=== PATIENT | male | born 1965 | race African-American/Black ===

== ENCOUNTER 2017-11-25 14:44 | Inpatient (IN) | payer OTHER ==
[2017-11-25 18:08] VITALS: BMI 34.5
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
[2017-11-25] MEDS ORDERED: METOPROLOL TARTRATE 50 MG TABLET (FP) PO SCH (20:19)
[2017-11-25] MEDS ORDERED: amLODIPine BESYLATE 10 MG TABLET (FP) PO SCH (20:19)
[2017-11-25] MEDS ORDERED: guaiFENesin/D-METHORPHAN HB 10 ML UNIT-DOSE CUPS PO PRN (20:23)
[2017-11-25] MEDS ORDERED: MAGNESIUM HYDROX 2400MG/30ML ORAL SUSPENSION 30 ML CUP PO PRN (20:23)
[2017-11-25] MEDS ORDERED: MENTHOL/PHENOL 1 EACH UD MM PRN (20:23)
[2017-11-25] MEDS ORDERED: chlordiazePOXIDE HCL 25 MG CAPSULE PO ONE (20:23)
[2017-11-25] MEDS ORDERED: IBUPROFEN 400 MG TABLET (FP) PO PRN (20:23)
[2017-11-25] MEDS ORDERED: P-EPHED 60MG/TRIPROLIDI 2.5MG TABLET PO PRN (20:23)
[2017-11-25] MEDS ORDERED: MAG HYDROX/AL HYDROX/SIMETH 30 ML UNIT-DOSE CUP PO PRN (20:23)
[2017-11-25] MEDS ORDERED: MAGNESIUM CITRATE 300 ML BOTTLE PO PRN (20:23)
[2017-11-25] MEDS ORDERED: NICOTINE POLACRILEX 2 MG GUM BUC PRN (20:23)
[2017-11-25] MEDS ORDERED: LOPERAMIDE HCL 2 MG CAPSULE PO PRN (20:23)
[2017-11-25] MEDS ORDERED: ACETAMINOPHEN 325 MG TABLET (FP) PO PRN (20:23)
[2017-11-26] MEDS: amLODIPine BESYLATE 10 MG TABLET (FP) PO SCH ×2 (03:27→12:03)
[2017-11-26] MEDS: chlordiazePOXIDE HCL 25 MG CAPSULE PO PRN ×2 (03:27→19:01)
[2017-11-26] MEDS: METOPROLOL TARTRATE 50 MG TABLET (FP) PO SCH ×2 (03:27→12:03)
[2017-11-26] MEDS: chlordiazePOXIDE HCL 25 MG CAPSULE PO SCH ×5 (06:00→22:38)
[2017-11-26] MEDS: THIAMINE HCL 100 MG TABLET (FP) PO SCH ×2 (06:36→22:38)
[2017-11-26 10:14] LABS: HEMATOCRIT 35.8 % (35.4-49); HEMOGLOBIN 11.4 GM/dL (11.7-16.9); MCH 27.4 pg (25.7-33.7); MCHC 31.7 g/dl (32.0-35.9); MEAN CELL VOLUME 86.4 fl (80-96); MEAN PLT VOLUME 10.5 fl (7.5-11.1); PLATELET COUNT 189 K/MM3 (134-434); RBC 4.14 M/mm3 (4.00-5.60); RDW 14.3 % (11.9-15.9); WHITE BLOOD COUNT 8.6 K/mm3 (4.0-10.0)
[2017-11-26 10:31] LABS: CHLORIDE 108 mmol/L (98-107); POTASSIUM 3.3 mmol/L (3.5-5.1); SODIUM 145 mmol/L (136-145)
[2017-11-26 10:57] LABS: ALBUMIN 3.2 g/dl (3.4-5.0); ALK PHOS 80 U/L (45-117); ANION GAP 12 MMOL/L (8-16); BILIRUBIN,TOTAL 0.5 mg/dL (0.2-1); BLOOD UREA NITROGEN 14 mg/dL (7-18); CALCIUM 8.4 mg/dL (8.5-10.1); CO2 25 mmol/L (21-32); CREATININE 0.9 mg/dL (0.55-1.3); GLUCOSE,RANDOM 96 mg/dL (74-106); SGOT/AST 42 U/L (15-37); SGPT/ALT 26 U/L (13-61); TOT PROT 6.5 g/dl (6.4-8.2)
[2017-11-26] MEDS ORDERED: PNEUMOCOCCAL 23 VACCINE 0.5 ML VIAL IM ONE (12:00)
[2017-11-26] MEDS: NICOTINE 14 MG/24 HOURS TOPICAL PATCH TD SCH (12:03)
[2017-11-26] MEDS: PRENATAL VITAMINS W/ FOLIC ACID TABLET (FP) PO SCH (12:17)
[2017-11-26] MEDS ORDERED: PNEUMOC 13-VAL CONJ-DIP CRM/PF 0.5 ML DISP.SYRIN IM ONE (12:20)
[2017-11-26] MEDS ORDERED: FLU VACCINE QUAD 60 MCG/0.5 ML (MDV 18-19) IM ONE (12:20)
--- NOTE | 2017-11-26 16:45 | EKG ---
Test Reason : Blood Pressure : / mmHG Vent. Rate : 078 BPM Atrial Rate : 078 BPM P-R Int : 162 ms QRS Dur : 088 ms QT Int : 400 ms P-R-T Axes : 051 014 035 degrees QTc Int : 456 ms SINUS RHYTHM WITH OCCASIONAL PREMATURE VENTRICULAR COMPLEXES POSSIBLE LEFT ATRIAL ENLARGEMENT BORDERLINE ECG NO PREVIOUS ECGS AVAILABLE Confirmed by Reji Tejada ([id number]) on 11/26/2017 4:44:51 PM Referred By: Confirmed By:Reji Tejada
--- NOTE | 2017-11-26 16:55 | PN ---
[facility] CIWA - CIWA Score Nausea/Vomitin-No Nausea/No Vomiting Muscle Tremors: 4-Moderate,w/Arms Extend Anxiety: 1-Mildly Anxious Agitation: 1-Slight > Activity Paroxysmal Sweats: 3 Orientation: 0-Oriented Tacttile Disturbances: 0-None Auditory Disturbances: 0-None Visual Disturbances: 0-None Headache: 0-None Present CIWA-Ar Total Score: 9 S Progress Note (SOAP) Subjective: C/o feeling some agitation and anxiety. Feels shaky. Denies nausea or vomiting. Objective: A&O x3. Moderate hand tremors. Abd S/NT/BS+. Vital Signs 11/26/17 11/26/17 09:25 13:58 Temperature 98.1 F 97.9 F Pulse Rate 72 67 Respiratory 16 16 Rate Blood Pressure 135/82 116/67 Laboratory 11/26/17 11/26/17 11/26/17 07:50 07:50 08:00 WBC 8.6 K/mm3 K/mm3 (4.0-10.0) RBC 4.14 M/mm3 M/mm3 (4.00-5.60) Hgb 11.4 GM/dL L GM/dL (11.7-16.9) Hct 35.8 % % (35.4-49) MCV 86.4 fl fl (80-96) MCH 27.4 pg pg (25.7-33.7) MCHC 31.7 g/dl L g/dl (32.0-35.9) RDW 14.3 % % (11.9-15.9) Plt Count 189 K/MM3 K/MM3 (134-434) MPV 10.5 fl fl (7.5-11.1) Sodium 145 mmol/L mmol/L (136-145) Potassium 3.3 mmol/L L mmol/L (3.5-5.1) Chloride 108 mmol/L H mmol/L (98-107) Carbon Dioxide 25 mmol/L mmol/L (21-32) Anion Gap 12 MMOL/L MMOL/L (8-16) BUN 14 mg/dL mg/dL (7-18) Creatinine 0.9 mg/dL mg/dL (0.55-1.3) Creat Clearance w eGFR > 60 (>60) Random Glucose 96 mg/dL mg/dL (74-106) Calcium 8.4 mg/dL L mg/dL (8.5-10.1) Total Bilirubin 0.5 mg/dL mg/dL (0.2-1) AST 42 U/L H U/L (15-37) ALT 26 U/L U/L (13-61) Alkaline Phosphatase 80 U/L U/L (45-117) Total Protein 6.5 g/dl g/dl (6.4-8.2) Albumin 3.2 g/dl L g/dl (3.4-5.0) RPR Titer Nonreactive (NONREACTIVE) Labs reviewed. Assessment: Withdrawal symptoms. Low potassium. Plan: Continue detox. Encourage patient to eat a banana and an orange as a potassium food source Repeat K+ in am.
--- NOTE | 2017-11-26 17:10 | CONSULT ---
[facility] Psychiatric Consult - Data Date of interview: 11/26/17 Admission source: [facility] Identifying data: Readmission to [facility] for this 51 y/o AA male self- referred for detoxification treatment (alcohol,cannabis,K2,crack/cocaine) .Admitted to [address] [place] [address].Patient is single without dependents,domiciled,unemployed and supported on SSI benefits. Substance Abuse History: Discussed with the patient in this interview.Details in current [facility] report : Smoking history: Current every day smoker. Have you smoked in the past 12 months: Yes. Aproximately how many cigarettes per day: 10. Hx Chewing Tobacco Use: No. Initiated information on smoking cessation: Yes. 'Breaking Loose' booklet given: 11/25/17. - Substance & Tx. History. Hx Alcohol Use: Yes. Hx Substance Use: Yes (K@). Substance Use Type: Alcohol, Cocaine, Marijuana. Hx Substance Use Treatment: Yes ([facility] Walker one month ago) . - Substances Abused. Alcohol. Route: Oral. Frequency: Daily. Amount used: 2 PINTS. Age of first use: 17. Date of Last Use: 11/25/17. Crack. Route: Smoking. Frequency: Daily. Amount used: $300. Age of first use: 17. Date of Last Use: 11/25/17 Medical History: Hypertension,blindness in right eye,history of eye surgery for cataracts (left eye) and antecedent of left inguinal herniorraphy. Psychiatric History: Patient denies history of psychiatric hospitalizations.Declares that he has been diagnosed with Bipolar Disorder.Mr Vazquez states that he " used to be " prescribed prolixin and depakote (doses not recalled).Patient indicates that he has not taken these medications " for a while". More than six months.No contact with psychiatric [employer]PD care providers.Patient denies history of suicide attempts. Physical/Sexual Abuse/Trauma History: Patient denies. Additional Comment: Urine Drug Screen Results: THC-Marijuana, RUTHY-Cocaine, BZO- Benzodiazepines.Noted. Mental Status Exam - Mental Status Exam Alert and Oriented to: Place, Person Cognitive Function: Grossly Intact Patient Appearance: Unkempt, Disheveled (obese male) Mood: Withdrawn Affect: Mood Congruent Patient Behavior: Sedated (mildly sedated), Fatigued, Cooperative Speech Pattern: Delayed, Slurred Voice Loudness: Moderately Soft/Quiet Thought Process: Goal Oriented (able to answer simple questions ) Thought Disorder: Not Present Hallucinations: Denies Suicidal Ideation: Denies Homicidal Ideation: Denies Insight/Judgement: Poor Sleep: Well Appetite: Good Gait/Station: Other (not observed ; in bed for duration of examination) Psychiatric Findings - Problem List ([place] 1, 2,3) (1) Alcohol dependence with withdrawal Current Visit: Yes Status: Acute Qualifiers: Complication of substance-induced condition: uncomplicated Qualified Code(s ): F10.230 - Alcohol dependence with withdrawal, uncomplicated (2) Cocaine dependence Current Visit: Yes Status: Acute Qualifiers: Substance use status: uncomplicated Qualified Code(s): F14.20 - Cocaine dependence, uncomplicated (3) Marijuana dependence Current Visit: Yes Status: Acute (4) Substance induced mood disorder Current Visit: Yes Status: Acute (5) Non-compliance Current Visit: Yes Status: Chronic Comment: Non adherent to psychiatric aftercare. - Initial Treatment Plan Initial Treatment Plan: Psychoeducation.Sleep hygiene.Detoxification in progress.Medications reconciled : no evidence of prolixin or depakote.Review of pharmacy claims : not informative.Observe clinical progress.
[2017-11-26 20:07] LABS: URINE APPEARANCE CLEAR; URINE BILIRUBIN NEGATIVE (<2.0 mg/dL); URINE COLOR YELLOW; URINE GLUCOSE (UA) 1+ (NEGATIVE); URINE KETONE NEGATIVE (NEGATIVE); URINE LEUK ESTERASE NEGATIVE (NEGATIVE); URINE NITRITE NEGATIVE (NEGATIVE); URINE PROTEIN NEGATIVE (NEGATIVE); URINE UROBILINOGEN NEGATIVE mg/dL (0.2-1.0)
[2017-11-27] MEDS: chlordiazePOXIDE HCL 25 MG CAPSULE PO PRN (00:56)
[2017-11-27] MEDS: chlordiazePOXIDE HCL 25 MG CAPSULE PO SCH ×3 (06:03→18:09)
[2017-11-27] MEDS: PRENATAL VITAMINS W/ FOLIC ACID TABLET (FP) PO SCH (10:49)
[2017-11-27] MEDS: amLODIPine BESYLATE 10 MG TABLET (FP) PO SCH (10:49)
[2017-11-27] MEDS: METOPROLOL TARTRATE 50 MG TABLET (FP) PO SCH (10:49)
[2017-11-27] MEDS: NICOTINE 14 MG/24 HOURS TOPICAL PATCH TD SCH (10:50)
[2017-11-27] MEDS ORDERED: POTASSIUM CHLORIDE ORAL LIQUID 20 MEQ/15 ML PO ONE (11:25)
--- NOTE | 2017-11-27 11:26 | PN ---
[facility] CIWA - CIWA Score Nausea/Vomitin-No Nausea/No Vomiting Muscle Tremors: 4-Moderate,w/Arms Extend Anxiety: 4-Mod. Anxious/Guarded Agitation: 4-Moderately Restless Paroxysmal Sweats: 1-Minimal Palms Moist Orientation: 0-Oriented Tacttile Disturbances: 0-None Auditory Disturbances: 0-None Visual Disturbances: 0-None Headache: 0-None Present CIWA-Ar Total Score: 13 S Progress Note (SOAP) Subjective: PT C/O ANXIETY, SWEATS, SLIGHT TREMORS. Objective: 11/27/17 11:24 Vital Signs 11/27/17 11/27/17 11/27/17 03:30 07:01 09:27 Temperature 97.5 F L 96.1 F L Pulse Rate 72 73 Respiratory 20 18 18 Rate Blood Pressure 126/82 132/74 Laboratory Tests 11/26/17 11/26/17 11/26/17 07:50 07:50 08:00 WBC 8.6 RBC 4.14 Hgb 11.4 L Hct 35.8 MCV 86.4 MCH 27.4 MCHC 31.7 L RDW 14.3 Plt Count 189 MPV 10.5 Sodium 145 Potassium 3.3 L Chloride 108 H Carbon Dioxide 25 Anion Gap 12 BUN 14 Creatinine 0.9 Creat Clearance w eGFR > 60 Random Glucose 96 Calcium 8.4 L Total Bilirubin 0.5 AST 42 H ALT 26 Alkaline Phosphatase 80 Total Protein 6.5 Albumin 3.2 L Urine Color Urine Appearance Urine pH Ur Specific [place] Urine Protein Urine Glucose (UA) Urine Ketones Urine Blood Urine Nitrite Urine Bilirubin Urine Urobilinogen Ur Leukocyte Esterase RPR Titer Nonreactive 11/26/17 11/27/17 17:30 07:30 WBC RBC Hgb Hct MCV MCH MCHC RDW Plt Count MPV Sodium Potassium 3.4 L Chloride Carbon Dioxide Anion Gap BUN Creatinine Creat Clearance w eGFR Random Glucose Calcium Total Bilirubin AST ALT Alkaline Phosphatase Total Protein Albumin Urine Color Yellow Urine Appearance Clear Urine pH 6.0 Ur Specific [place] 1.018 Urine Protein Negative Urine Glucose (UA) 1+ H Urine Ketones Negative Urine Blood Negative Urine Nitrite Negative Urine Bilirubin Negative Urine Urobilinogen Negative Ur Leukocyte Esterase Negative RPR Titer LABS NOTED. K+ = 3.3 Assessment: 11/27/17 11:24 WITHDRAWAL SX HYPOKALEMIA Plan: CONTINUE DETOX KCL LIQ 20 MEQ PO BID, FIRST DOSE NOW.
[2017-11-27] MEDS: THIAMINE HCL 100 MG TABLET (FP) PO SCH (22:35)
[2017-11-27] MEDS: POTASSIUM CHLORIDE ORAL LIQUID 20 MEQ/15 ML PO SCH (22:35)
[2017-11-27] MEDS: chlordiazePOXIDE 5 MG CAPSULE PO SCH (22:35)
[2017-11-27] MEDS: MELATONIN 5 MG TABLETS PO PRN (22:36)
[2017-11-28] MEDS: chlordiazePOXIDE 5 MG CAPSULE PO SCH ×3 (06:01→18:04)
[2017-11-28] MEDS: amLODIPine BESYLATE 10 MG TABLET (FP) PO SCH (10:37)
[2017-11-28] MEDS: PRENATAL VITAMINS W/ FOLIC ACID TABLET (FP) PO SCH (10:37)
[2017-11-28] MEDS: POTASSIUM CHLORIDE ORAL LIQUID 20 MEQ/15 ML PO SCH ×2 (10:37→22:39)
[2017-11-28] MEDS: METOPROLOL TARTRATE 50 MG TABLET (FP) PO SCH (10:38)
[2017-11-28] MEDS: NICOTINE 14 MG/24 HOURS TOPICAL PATCH TD SCH (10:40)
--- NOTE | 2017-11-28 11:31 | PN ---
S Progress Note (SOAP) Subjective: DETOX PROCEEDING WELL. PT REPORTS MEDICATION TAPER EFFECTIVE. ALERT O X 3. NAD. PT REFERRED TO [facility] TOMORROW PER COUNSELOR, ZEE STYLES. Objective: 11/28/17 11:30 Vital Signs 11/28/17 11/28/17 11/28/17 06:17 06:30 10:05 Temperature 97.2 F L 98.4 F Pulse Rate 61 76 Respiratory 18 18 20 Rate Blood Pressure 118/74 135/91 Laboratory Tests 11/26/17 11/26/17 11/26/17 07:50 07:50 08:00 WBC 8.6 RBC 4.14 Hgb 11.4 L Hct 35.8 MCV 86.4 MCH 27.4 MCHC 31.7 L RDW 14.3 Plt Count 189 MPV 10.5 Sodium 145 Potassium 3.3 L Chloride 108 H Carbon Dioxide 25 Anion Gap 12 BUN 14 Creatinine 0.9 Creat Clearance w eGFR > 60 Random Glucose 96 Calcium 8.4 L Total Bilirubin 0.5 AST 42 H ALT 26 Alkaline Phosphatase 80 Total Protein 6.5 Albumin 3.2 L Urine Color Urine Appearance Urine pH Ur Specific [place] Urine Protein Urine Glucose (UA) Urine Ketones Urine Blood Urine Nitrite Urine Bilirubin Urine Urobilinogen Ur Leukocyte Esterase RPR Titer Nonreactive 11/26/17 11/27/17 17:30 07:30 WBC RBC Hgb Hct MCV MCH MCHC RDW Plt Count MPV Sodium Potassium 3.4 L Chloride Carbon Dioxide Anion Gap BUN Creatinine Creat Clearance w eGFR Random Glucose Calcium Total Bilirubin AST ALT Alkaline Phosphatase Total Protein Albumin Urine Color Yellow Urine Appearance Clear Urine pH 6.0 Ur Specific [place] 1.018 Urine Protein Negative Urine Glucose (UA) 1+ H Urine Ketones Negative Urine Blood Negative Urine Nitrite Negative Urine Bilirubin Negative Urine Urobilinogen Negative Ur Leukocyte Esterase Negative RPR Titer Assessment: 11/28/17 11:30 NAD Plan: CONTINUE DETOX RX FOR HTN SENT TO [facility] FOR PRODUCT [facility] TO REHAB. REPEAT K+ LEVEL TODAY.
[2017-11-28] MEDS: chlordiazePOXIDE HCL 10 MG CAPSULE PO SCH (22:39)
[2017-11-28] MEDS: THIAMINE HCL 100 MG TABLET (FP) PO SCH (22:39)
[2017-11-28] MEDS: MELATONIN 5 MG TABLETS PO PRN (22:39)
[2017-11-29] MEDS: chlordiazePOXIDE HCL 10 MG CAPSULE PO SCH ×2 (06:28→10:45)
[2017-11-29 10:33] VITALS: BP 152/90; PULSE 65; TEMP 97.6
[2017-11-29] MEDS: METOPROLOL TARTRATE 50 MG TABLET (FP) PO SCH (10:42)
[2017-11-29] MEDS: amLODIPine BESYLATE 10 MG TABLET (FP) PO SCH (10:43)
[2017-11-29] MEDS: PRENATAL VITAMINS W/ FOLIC ACID TABLET (FP) PO SCH (10:43)
[2017-11-29] MEDS: POTASSIUM CHLORIDE ORAL LIQUID 20 MEQ/15 ML PO SCH (10:43)
[2017-11-29] MEDS: NICOTINE 14 MG/24 HOURS TOPICAL PATCH TD SCH (10:45)
--- NOTE | 2017-11-29 12:53 | DS ---
[facility] Detox Discharge Summary Admission Date: 11/25/17 Discharge Date: 11/29/17 - History Present History: Alcohol Dependence, Cocaine Dependence Additional Comments: DETOX COMPLETED. ALERT O X 3. NAD. PT TO FOLLOW UP WITH HIS PCP FOR MEDICAL MANAGEMENT OF COMORBID CONDITIONS. Pertinent Past History: PLEASE SEE DX BELOW - Physical Exam Results Vital Signs: Vital Signs Temperature 97.6 F 11/29/17 10:32 Pulse Rate 65 11/29/17 10:32 Respiratory Rate 18 11/29/17 10:32 Blood Pressure 152/90 11/29/17 10:32 O2 Sat by Pulse Oximetry (%) Pertinent Admission Physical Exam Findings: WITHDRAWAL SX Laboratory Tests 11/26/17 11/26/17 11/26/17 07:50 07:50 08:00 WBC 8.6 RBC 4.14 Hgb 11.4 L Hct 35.8 MCV 86.4 MCH 27.4 MCHC 31.7 L RDW 14.3 Plt Count 189 MPV 10.5 Sodium 145 Potassium 3.3 L Chloride 108 H Carbon Dioxide 25 Anion Gap 12 BUN 14 Creatinine 0.9 Creat Clearance w eGFR > 60 Random Glucose 96 Calcium 8.4 L Total Bilirubin 0.5 AST 42 H ALT 26 Alkaline Phosphatase 80 Total Protein 6.5 Albumin 3.2 L Urine Color Urine Appearance Urine pH Ur Specific [place] Urine Protein Urine Glucose (UA) Urine Ketones Urine Blood Urine Nitrite Urine Bilirubin Urine Urobilinogen Ur Leukocyte Esterase RPR Titer Nonreactive 11/26/17 11/27/17 11/28/17 17:30 07:30 12:30 WBC RBC Hgb Hct MCV MCH MCHC RDW Plt Count MPV Sodium Potassium 3.4 L 3.6 Chloride Carbon Dioxide Anion Gap BUN Creatinine Creat Clearance w eGFR Random Glucose Calcium Total Bilirubin AST ALT Alkaline Phosphatase Total Protein Albumin Urine Color Yellow Urine Appearance Clear Urine pH 6.0 Ur Specific [place] 1.018 Urine Protein Negative Urine Glucose (UA) 1+ H Urine Ketones Negative Urine Blood Negative Urine Nitrite Negative Urine Bilirubin Negative Urine Urobilinogen Negative Ur Leukocyte Esterase Negative RPR Titer - Treatment Hospital Course: Detox Protocol Followed, Detoxed Safely, Responded well, Discharged Condition Good, Rehab Referral Accepted Patient has Accepted a Rehab Referral to: [facility] - Medication Discharge Medications: Ambulatory Orders Diphenhydramine [Benadryl -] 100 mg PO DAILY 11/25/17 Amlodipine Besylate [Norvasc -] 10 mg PO DAILY #30 tablet 11/28/17 Metoprolol Tartrate [Lopressor] 50 mg PO DAILY #30 tablet 11/28/17 - Diagnosis (1) Alcohol dependence with withdrawal Current Visit: Yes Status: Acute Qualifiers: Complication of substance-induced condition: uncomplicated Qualified Code(s ): F10.230 - Alcohol dependence with withdrawal, uncomplicated (2) Cocaine dependence Current Visit: Yes Status: Acute Qualifiers: Substance use status: uncomplicated Qualified Code(s): F14.20 - Cocaine dependence, uncomplicated (3) Marijuana dependence Current Visit: Yes Status: Acute (4) Hypertension Current Visit: Yes Status: Chronic Qualifiers: Hypertension type: essential hypertension Qualified Code(s): I10 - Essential (primary) hypertension (5) Obese Current Visit: Yes Status: Chronic Qualifiers: Obesity type: unspecified obesity type Obesity classification: adult class 1 (BMI 30 - 34.9) (6) Visual impairment of right eye Current Visit: Yes Status: Chronic (7) Hypokalemia Current Visit: Yes Status: Acute - AMA Did Patient Leave Against Medical Advice: No
--- NOTE | 2017-11-29 13:02 | PN ---
S Progress Note (SOAP) Subjective: DETOX COMPLETED, ALERT O X 3 NAD. PT WAS UNABLE TO FILL HIS RX THAT WAS SENT TO [facility] BECAUSE HE HAD JUST PICKED UP A NEW REFILL BEFOR COMING TO DETOX. PT SPOKE TO HIS COUNSELOR AND WILL BE FOLLOWING UP WITH [facility] AT [facility] WITH HIS MEDICATIONS AFTER DISCHARGE FROM HERE TODAY. Objective: 11/29/17 13:03 Vital Signs 11/29/17 11/29/17 06:24 10:32 Temperature 97 F L 97.6 F Pulse Rate 64 65 Respiratory 18 18 Rate Blood Pressure 123/74 152/90 Laboratory Tests 11/26/17 11/26/17 11/26/17 07:50 07:50 08:00 WBC 8.6 RBC 4.14 Hgb 11.4 L Hct 35.8 MCV 86.4 MCH 27.4 MCHC 31.7 L RDW 14.3 Plt Count 189 MPV 10.5 Sodium 145 Potassium 3.3 L Chloride 108 H Carbon Dioxide 25 Anion Gap 12 BUN 14 Creatinine 0.9 Creat Clearance w eGFR > 60 Random Glucose 96 Calcium 8.4 L Total Bilirubin 0.5 AST 42 H ALT 26 Alkaline Phosphatase 80 Total Protein 6.5 Albumin 3.2 L Urine Color Urine Appearance Urine pH Ur Specific [place] Urine Protein Urine Glucose (UA) Urine Ketones Urine Blood Urine Nitrite Urine Bilirubin Urine Urobilinogen Ur Leukocyte Esterase RPR Titer Nonreactive 11/26/17 11/27/17 11/28/17 17:30 07:30 12:30 WBC RBC Hgb Hct MCV MCH MCHC RDW Plt Count MPV Sodium Potassium 3.4 L 3.6 Chloride Carbon Dioxide Anion Gap BUN Creatinine Creat Clearance w eGFR Random Glucose Calcium Total Bilirubin AST ALT Alkaline Phosphatase Total Protein Albumin Urine Color Yellow Urine Appearance Clear Urine pH 6.0 Ur Specific [place] 1.018 Urine Protein Negative Urine Glucose (UA) 1+ H Urine Ketones Negative Urine Blood Negative Urine Nitrite Negative Urine Bilirubin Negative Urine Urobilinogen Negative Ur Leukocyte Esterase Negative RPR Titer Assessment: 11/29/17 13:03 MEDICALLY STABLE Plan: D/C PT TODAY
== END 2017-11-29 12:06 | disposition home or self-care (01) | DRG 775 ==
LOC: YASAS 14:44 → Y3N 20:47
PROC: HZ2ZZZZ Detoxification Services for Substance Abuse Treatment (ICD-10-PCS; principal; 2017-11-25)
DX: F10.230 Alcohol dependence with withdrawal, uncomplicated (principal); F12.20 Cannabis dependence, uncomplicated; F19.24 Other psychoactive substance dependence with psychoactive substance-induced mood disorder; E87.6 Hypokalemia; I10 Essential (primary) hypertension; H54.7 Unspecified visual loss; E66.9 Obesity, unspecified; Z68.34 Body mass index [BMI] 34.0-34.9, adult; Z91.19 Patient's noncompliance with other medical treatment and regimen
CPT/HCPCS: 36415; 80053; 81003; 84132; 85027; 86593; 90688; 90732; 93005; 93010; G0008; G0009

== ENCOUNTER 2018-05-18 15:58 | Inpatient (IN) | payer OTHER ==
[2018-05-18 17:52] VITALS: BMI 34.0
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
[2018-05-18] MEDS ORDERED: METHOCARBAMOL 500 MG TABLET PO PRN (20:44)
[2018-05-18] MEDS ORDERED: NICOTINE POLACRILEX 2 MG GUM BUC PRN (20:44)
[2018-05-18] MEDS ORDERED: MENTHOL/PHENOL 1 EACH UD MM PRN (20:44)
[2018-05-18] MEDS ORDERED: IBUPROFEN 400 MG TABLET (FP) PO PRN (20:44)
[2018-05-18] MEDS ORDERED: hydrOXYzine PAMOATE 25 MG CAPSULE (FP) PO PRN (20:44)
[2018-05-18] MEDS ORDERED: ONDANSETRON *ODT* 4 MG TABLET SL PRN (20:44)
[2018-05-18] MEDS ORDERED: BISMUTH SUBSALICYLATE 524 MG/30 ML UD PO PRN (20:44)
[2018-05-18] MEDS ORDERED: MAGNESIUM CITRATE 300 ML BOTTLE PO PRN (20:44)
[2018-05-18] MEDS ORDERED: ACETAMINOPHEN 325 MG TABLET (FP) PO PRN ×2 (20:44)
[2018-05-18] MEDS ORDERED: chlordiazePOXIDE HCL 25 MG CAPSULE PO PRN (20:44)
[2018-05-18] MEDS ORDERED: MAG HYDROX/AL HYDROX/SIMETH 30 ML UNIT-DOSE CUP PO PRN (20:44)
[2018-05-18] MEDS ORDERED: MAGNESIUM HYDROX 2400MG/30ML ORAL SUSPENSION 30 ML CUP PO PRN (20:44)
[2018-05-18] MEDS ORDERED: MELATONIN 5 MG TABLETS PO PRN (20:44)
[2018-05-18] MEDS: chlordiazePOXIDE HCL 25 MG CAPSULE PO SCH (22:21)
[2018-05-18] MEDS: THIAMINE HCL 100 MG TABLET (FP) PO SCH (22:21)
[2018-05-18] MEDS ORDERED: cloNIDine HCL 0.1 MG TABLET PO ONE (22:56)
--- NOTE | 2018-05-18 22:59 | PN ---
S Progress Note Note: Patent's blood pressure is B/P 163/104. Patient is asymptomatic. Vital Signs Temperature 98.8 F 05/18/18 17:51 Pulse Rate 72 05/18/18 22:56 Respiratory Rate 16 05/18/18 22:56 Blood Pressure 163/103 H 05/18/18 22:56 O2 Sat by Pulse Oximetry (%) Action: Clonidine 0.1mg 1 tablet oral ordered
[2018-05-19] MEDS: chlordiazePOXIDE HCL 25 MG CAPSULE PO SCH ×4 (07:03→22:41)
[2018-05-19 10:10] LABS: HEMATOCRIT 36.6 % (35.4-49); HEMOGLOBIN 12.3 GM/dL (11.7-16.9); MCH 28.5 pg (25.7-33.7); MCHC 33.7 g/dl (32.0-35.9); MEAN CELL VOLUME 84.7 fl (80-96); MEAN PLT VOLUME 9.9 fl (7.5-11.1); PLATELET COUNT 234 K/MM3 (134-434); RBC 4.33 M/mm3 (4.00-5.60); RDW 15.4 % (11.9-15.9); WHITE BLOOD COUNT 6.7 K/mm3 (4.0-10.0)
[2018-05-19 10:32] LABS: ALBUMIN 3.1 g/dl (3.4-5.0); ALK PHOS 91 U/L (45-117); ANION GAP 7 MMOL/L (8-16); BILIRUBIN,TOTAL 0.6 mg/dL (0.2-1); BLOOD UREA NITROGEN 15 mg/dL (7-18); CALCIUM 8.6 mg/dL (8.5-10.1); CHLORIDE 104 mmol/L (98-107); CO2 30 mmol/L (21-32); CREATININE 1.3 mg/dL (0.55-1.3); GLUCOSE,RANDOM 89 mg/dL (74-106); POTASSIUM 3.2 mmol/L (3.5-5.1); SGOT/AST 24 U/L (15-37); SGPT/ALT 20 U/L (13-61); SODIUM 141 mmol/L (136-145); TOT PROT 6.3 g/dl (6.4-8.2)
--- NOTE | 2018-05-19 11:01 | PN ---
S CIWA - CIWA Score Nausea/Vomitin-No Nausea/No Vomiting Muscle Tremors: 2 Anxiety: 1-Mildly Anxious Agitation: 2 Paroxysmal Sweats: 1-Minimal Palms Moist Orientation: 1-Uncertain about Date Tacttile Disturbances: 0-None Auditory Disturbances: 0-None Visual Disturbances: 0-None Headache: 2-Mild CIWA-Ar Total Score: 9 [facility] Progress Note (SOAP) Subjective: tremor sweating headaches anxiousness Objective: 05/19/18 11:15 Vital Signs Temperature 98.1 F 05/19/18 09:54 Pulse Rate 66 05/19/18 09:54 Respiratory Rate 18 05/19/18 09:54 Blood Pressure 129/78 05/19/18 09:54 O2 Sat by Pulse Oximetry (%) Laboratory Last Values WBC 6.7 K/mm3 (4.0-10.0) 05/19/18 08:00 RBC 4.33 M/mm3 (4.00-5.60) 05/19/18 08:00 Hgb 12.3 GM/dL (11.7-16.9) 05/19/18 08:00 Hct 36.6 % (35.4-49) 05/19/18 08:00 MCV 84.7 fl (80-96) 05/19/18 08:00 MCH 28.5 pg (25.7-33.7) 05/19/18 08:00 MCHC 33.7 g/dl (32.0-35.9) 05/19/18 08:00 RDW 15.4 % (11.9-15.9) 05/19/18 08:00 Plt Count 234 K/MM3 (134-434) D 05/19/18 08:00 MPV 9.9 fl (7.5-11.1) 05/19/18 08:00 Sodium 141 mmol/L (136-145) 05/19/18 08:00 Potassium 3.2 mmol/L (3.5-5.1) L 05/19/18 08:00 Chloride 104 mmol/L (98-107) 05/19/18 08:00 Carbon Dioxide 30 mmol/L (21-32) 05/19/18 08:00 Anion Gap 7 MMOL/L (8-16) L 05/19/18 08:00 BUN 15 mg/dL (7-18) 05/19/18 08:00 Creatinine 1.3 mg/dL (0.55-1.3) 05/19/18 08:00 Creat Clearance w eGFR 58.43 (>60) 05/19/18 08:00 Random Glucose 89 mg/dL (74-106) 05/19/18 08:00 Calcium 8.6 mg/dL (8.5-10.1) 05/19/18 08:00 Total Bilirubin 0.6 mg/dL (0.2-1) 05/19/18 08:00 AST 24 U/L (15-37) 05/19/18 08:00 ALT 20 U/L (13-61) 05/19/18 08:00 Alkaline Phosphatase 91 U/L (45-117) 05/19/18 08:00 Total Protein 6.3 g/dl (6.4-8.2) L 05/19/18 08:00 Albumin 3.1 g/dl (3.4-5.0) L 05/19/18 08:00 lab noted low K+ 05/19/18 11:19 Assessment: 05/19/18 11:19 withdrawal sx hypokalemia Plan: continue detox K+ supplement
--- NOTE | 2018-05-19 11:23 | EKG ---
Test Reason : Blood Pressure : / mmHG Vent. Rate : 072 BPM Atrial Rate : 072 BPM P-R Int : 182 ms QRS Dur : 090 ms QT Int : 388 ms P-R-T Axes : 051 013 035 degrees QTc Int : 424 ms NORMAL SINUS RHYTHM NONSPECIFIC T WAVE ABNORMALITY ABNORMAL ECG WHEN COMPARED WITH ECG OF 26-NOV-2017 02:27, PREMATURE VENTRICULAR COMPLEXES ARE NO LONGER PRESENT T WAVE VARIATION Confirmed by CHRISTINE BENAVIDEZ, TRISHA ([id number]) on 05/19/2018 11:23:20 AM Referred By: Confirmed By:TRISHA KING MD
[2018-05-19] MEDS: PRENATAL VITAMINS W/ FOLIC ACID TABLET (FP) PO SCH (11:59)
[2018-05-19] MEDS: METOPROLOL TARTRATE 50 MG TABLET (FP) PO SCH (11:59)
[2018-05-19] MEDS: LISINOPRIL 10 MG TABLET (FP) PO SCH (11:59)
[2018-05-19] MEDS: NICOTINE 14 MG/24 HOURS TOPICAL PATCH TD SCH (11:59)
[2018-05-19] MEDS: NIFEdipine E.R. 30 MG TABLET (FP) PO SCH (11:59)
[2018-05-19] MEDS: POTASSIUM CHLORIDE ORAL LIQUID 20 MEQ/15 ML PO SCH ×2 (14:01→17:35)
[2018-05-19] MEDS: THIAMINE HCL 100 MG TABLET (FP) PO SCH (22:41)
--- NOTE | 2018-05-19 23:47 | EKG ---
Test Reason : Blood Pressure : / mmHG Vent. Rate : 063 BPM Atrial Rate : 063 BPM P-R Int : 168 ms QRS Dur : 086 ms QT Int : 420 ms P-R-T Axes : 054 016 017 degrees QTc Int : 429 ms NORMAL SINUS RHYTHM WITH SINUS ARRHYTHMIA SEPTAL INFARCT , AGE UNDETERMINED ABNORMAL ECG WHEN COMPARED WITH ECG OF 18-MAY-2018 22:02, SEPTAL INFARCT IS NOW PRESENT Confirmed by CHRISTINE BENAVIDEZ, TRISHA ([id number]) on 05/19/2018 11:47:26 PM Referred By: Confirmed By:TRISHA KING MD
[2018-05-20] MEDS: chlordiazePOXIDE HCL 25 MG CAPSULE PO SCH ×3 (06:09→17:41)
[2018-05-20] MEDS: NIFEdipine E.R. 30 MG TABLET (FP) PO SCH (10:48)
[2018-05-20] MEDS: METOPROLOL TARTRATE 50 MG TABLET (FP) PO SCH (10:48)
[2018-05-20] MEDS: NICOTINE 14 MG/24 HOURS TOPICAL PATCH TD SCH (10:50)
[2018-05-20] MEDS: LISINOPRIL 10 MG TABLET (FP) PO SCH (10:50)
[2018-05-20] MEDS: PRENATAL VITAMINS W/ FOLIC ACID TABLET (FP) PO SCH (10:50)
--- NOTE | 2018-05-20 11:26 | PN ---
[facility] CIWA - CIWA Score Nausea/Vomitin-No Nausea/No Vomiting Muscle Tremors: 1-None Visible, but [place] Anxiety: 1-Mildly Anxious Agitation: 1-Slight > Activity Paroxysmal Sweats: No Perspiration Orientation: 1-Uncertain about Date Tacttile Disturbances: 0-None Auditory Disturbances: 0-None Visual Disturbances: 0-None Headache: 1-Very Mild CIWA-Ar Total Score: 5 BHS Progress Note (SOAP) Subjective: tremor sweating headaches long history of hypertension none adherence with medication Objective: 05/20/18 11:26 Vital Signs Temperature 96.3 F L 05/20/18 09:39 Pulse Rate 64 05/20/18 09:39 Respiratory Rate 16 05/20/18 09:39 Blood Pressure 161/81 05/20/18 09:39 O2 Sat by Pulse Oximetry (%) Laboratory Last Values WBC 6.7 K/mm3 (4.0-10.0) 05/19/18 08:00 RBC 4.33 M/mm3 (4.00-5.60) 05/19/18 08:00 Hgb 12.3 GM/dL (11.7-16.9) 05/19/18 08:00 Hct 36.6 % (35.4-49) 05/19/18 08:00 MCV 84.7 fl (80-96) 05/19/18 08:00 MCH 28.5 pg (25.7-33.7) 05/19/18 08:00 MCHC 33.7 g/dl (32.0-35.9) 05/19/18 08:00 RDW 15.4 % (11.9-15.9) 05/19/18 08:00 Plt Count 234 K/MM3 (134-434) D 05/19/18 08:00 MPV 9.9 fl (7.5-11.1) 05/19/18 08:00 Sodium 141 mmol/L (136-145) 05/19/18 08:00 Potassium 3.2 mmol/L (3.5-5.1) L 05/19/18 08:00 Chloride 104 mmol/L (98-107) 05/19/18 08:00 Carbon Dioxide 30 mmol/L (21-32) 05/19/18 08:00 Anion Gap 7 MMOL/L (8-16) L 05/19/18 08:00 BUN 15 mg/dL (7-18) 05/19/18 08:00 Creatinine 1.3 mg/dL (0.55-1.3) 05/19/18 08:00 Creat Clearance w eGFR 58.43 (>60) 05/19/18 08:00 Random Glucose 89 mg/dL (74-106) 05/19/18 08:00 Calcium 8.6 mg/dL (8.5-10.1) 05/19/18 08:00 Total Bilirubin 0.6 mg/dL (0.2-1) 05/19/18 08:00 AST 24 U/L (15-37) 05/19/18 08:00 ALT 20 U/L (13-61) 05/19/18 08:00 Alkaline Phosphatase 91 U/L (45-117) 05/19/18 08:00 Total Protein 6.3 g/dl (6.4-8.2) L 05/19/18 08:00 Albumin 3.1 g/dl (3.4-5.0) L 05/19/18 08:00 RPR Titer Nonreactive (NONREACTIVE) 05/19/18 08:00 lab noted hypertension K+ repeat pending S1S2 regular pulmonary lungs clear abdomen soft tolerate food well extremities no swell , 05/20/18 11:31 Assessment: 05/20/18 11:30 alcohol withdrawal sx hypertension Plan: continue detox add HCTZ
[2018-05-20] MEDS ORDERED: POTASSIUM CHLORIDE ORAL LIQUID 20 MEQ/15 ML PO SCH (12:00)
[2018-05-20] MEDS: HYDROCHLOROTHIAZIDE 12.5 MG CAPSULE (FP) PO SCH ×2 (13:26→17:41)
[2018-05-20] MEDS: chlordiazePOXIDE HCL 10 MG CAPSULE PO SCH (22:50)
[2018-05-20] MEDS: THIAMINE HCL 100 MG TABLET (FP) PO SCH (22:50)
[2018-05-20] MEDS ORDERED: chlordiazePOXIDE HCL 10 MG CAPSULE PO PRN (23:00)
[2018-05-21] MEDS: HYDROCHLOROTHIAZIDE 12.5 MG CAPSULE (FP) PO SCH (06:52)
[2018-05-21] MEDS: chlordiazePOXIDE HCL 10 MG CAPSULE PO SCH ×2 (06:52→11:45)
[2018-05-21 09:06] VITALS: BP 132/76; PULSE 74; TEMP 96
--- NOTE | 2018-05-21 10:43 | DS ---
[facility] Detox Discharge Summary Admission Date: 05/18/18 Discharge Date: 05/21/18 - History Present History: Alcohol Dependence Additional Comments: 52 years old male admitted on 05/18/18 for alcohol withdrawal stabilization feeling better today prefer begin alcohol rehab today aftercare [facility] transportation arranged Pertinent Past History: keep medication list in wallet bring in medication list and bottles of medication to aftercare appointment update medication list when change of medication medication adherence bring in lab result to aftercare appointment - Physical Exam Results Vital Signs: Vital Signs Temperature 96 F L 05/21/18 09:06 Pulse Rate 74 05/21/18 09:06 Respiratory Rate 20 05/21/18 09:06 Blood Pressure 132/76 05/21/18 09:06 O2 Sat by Pulse Oximetry (%) Pertinent Admission Physical Exam Findings: alcohol withdrawal sx Laboratory Last Values WBC 6.7 K/mm3 (4.0-10.0) 05/19/18 08:00 RBC 4.33 M/mm3 (4.00-5.60) 05/19/18 08:00 Hgb 12.3 GM/dL (11.7-16.9) 05/19/18 08:00 Hct 36.6 % (35.4-49) 05/19/18 08:00 MCV 84.7 fl (80-96) 05/19/18 08:00 MCH 28.5 pg (25.7-33.7) 05/19/18 08:00 MCHC 33.7 g/dl (32.0-35.9) 05/19/18 08:00 RDW 15.4 % (11.9-15.9) 05/19/18 08:00 Plt Count 234 K/MM3 (134-434) D 05/19/18 08:00 MPV 9.9 fl (7.5-11.1) 05/19/18 08:00 Sodium 141 mmol/L (136-145) 05/19/18 08:00 Potassium 3.8 mmol/L (3.5-5.1) 05/20/18 07:00 Chloride 104 mmol/L (98-107) 05/19/18 08:00 Carbon Dioxide 30 mmol/L (21-32) 05/19/18 08:00 Anion Gap 7 MMOL/L (8-16) L 05/19/18 08:00 BUN 15 mg/dL (7-18) 05/19/18 08:00 Creatinine 1.3 mg/dL (0.55-1.3) 05/19/18 08:00 Creat Clearance w eGFR 58.43 (>60) 05/19/18 08:00 Random Glucose 89 mg/dL (74-106) 05/19/18 08:00 Calcium 8.6 mg/dL (8.5-10.1) 05/19/18 08:00 Total Bilirubin 0.6 mg/dL (0.2-1) 05/19/18 08:00 AST 24 U/L (15-37) 05/19/18 08:00 ALT 20 U/L (13-61) 05/19/18 08:00 Alkaline Phosphatase 91 U/L (45-117) 05/19/18 08:00 Total Protein 6.3 g/dl (6.4-8.2) L 05/19/18 08:00 Albumin 3.1 g/dl (3.4-5.0) L 05/19/18 08:00 RPR Titer Nonreactive (NONREACTIVE) 05/19/18 08:00 lab noted - Treatment Hospital Course: Detox Protocol Followed, Detoxed Safely, Responded well, Discharged Condition Good, Rehab Referral Accepted Patient has Accepted a Rehab Referral to: [facility] - Medication Discharge Medications: Ambulatory Orders Hydrochlorothiazide 12.5 mg PO BID 05/20/18 Amlodipine Besylate [Norvasc -] 10 mg PO DAILY #30 tablet 05/21/18 Hydrochlorothiazide [Hctz -] 12.5 mg PO BID@0700,1630 #30 cap 05/21/18 Lisinopril 10 mg PO DAILY #30 tablet 05/21/18 Metoprolol Tartrate [Lopressor] 50 mg PO DAILY #30 tablet 05/21/18 Nifedipine [Procardia Xl] 30 mg PO DAILY #30 tab.er.24 05/21/18 - Diagnosis (1) Hypertension Current Visit: Yes Status: Chronic Qualifiers: Hypertension type: essential hypertension Qualified Code(s): I10 - Essential (primary) hypertension (2) Nicotine dependence Current Visit: Yes Status: Acute Qualifiers: Nicotine product type: cigarettes Substance use status: in withdrawal Qualified Code(s): F17.213 - Nicotine dependence, cigarettes, with withdrawal (3) Alcohol dependence with withdrawal Current Visit: Yes Status: Acute Qualifiers: Complication of substance-induced condition: uncomplicated Qualified Code(s ): F10.230 - Alcohol dependence with withdrawal, uncomplicated (4) Substance induced mood disorder Current Visit: Yes Status: Suspected - AMA Did Patient Leave Against Medical Advice: No
[2018-05-21] MEDS: NICOTINE 14 MG/24 HOURS TOPICAL PATCH TD SCH (10:44)
[2018-05-21] MEDS: METOPROLOL TARTRATE 50 MG TABLET (FP) PO SCH (10:44)
[2018-05-21] MEDS: LISINOPRIL 10 MG TABLET (FP) PO SCH (10:44)
[2018-05-21] MEDS: PRENATAL VITAMINS W/ FOLIC ACID TABLET (FP) PO SCH (10:44)
[2018-05-21] MEDS: NIFEdipine E.R. 30 MG TABLET (FP) PO SCH (10:44)
[2018-05-21] MEDS ORDERED: chlordiazePOXIDE HCL 10 MG CAPSULE PO SCH (23:00)
== END 2018-05-21 11:38 | disposition home or self-care (01) | DRG 774 ==
LOC: YASAS 15:58 → Y3N 20:09
PROVIDERS: ADMIT Surgery; ATTEND Surgery
PROC: HZ2ZZZZ Detoxification Services for Substance Abuse Treatment (ICD-10-PCS; principal; 2018-05-18)
DX: F10.230 Alcohol dependence with withdrawal, uncomplicated (principal); F14.20 Cocaine dependence, uncomplicated; F12.20 Cannabis dependence, uncomplicated; F17.213 Nicotine dependence, cigarettes, with withdrawal; F19.24 Other psychoactive substance dependence with psychoactive substance-induced mood disorder; F32.9 Major depressive disorder, single episode, unspecified; I10 Essential (primary) hypertension; E87.6 Hypokalemia; H54.40 Blindness, one eye, unspecified eye; E66.9 Obesity, unspecified; Z68.34 Body mass index [BMI] 34.0-34.9, adult; Z86.69 Personal history of other diseases of the nervous system and sense organs
CPT/HCPCS: 36415; 80053; 84132; 85027; 86593; 93005; 93010; J0735

== ENCOUNTER 2021-01-16 13:49 | Inpatient (IN) | payer OTHER ==
[2021-01-16] MEDS ORDERED: hydrOXYzine PAMOATE 25 MG CAPSULE (FP) PO PRN (17:22)
[2021-01-16] MEDS ORDERED: METHOCARBAMOL 500 MG TABLET PO PRN (17:22)
[2021-01-16] MEDS ORDERED: NICOTINE 10 MG CARTRIDGE (INHALER) IH PRN (17:22)
[2021-01-16] MEDS ORDERED: IBUPROFEN 400 MG TABLET (FP) PO PRN (17:22)
[2021-01-16] MEDS ORDERED: MAGNESIUM CITRATE 300 ML BOTTLE PO PRN (17:22)
[2021-01-16] MEDS ORDERED: ONDANSETRON *ODT* 4 MG TABLET SL PRN (17:22)
[2021-01-16] MEDS ORDERED: BISMUTH SUBSALICYLATE 524 MG/30 ML PO PRN (17:22)
[2021-01-16] MEDS ORDERED: MENTHOL/PHENOL 1 EACH UD MM PRN (17:22)
[2021-01-16] MEDS ORDERED: ACETAMINOPHEN 325 MG TABLET (FP) PO PRN ×2 (17:22)
[2021-01-16] MEDS ORDERED: MAGNESIUM HYDROX 2400MG/30ML ORAL SUSPENSION 30 ML CUP PO PRN (17:22)
[2021-01-16] MEDS ORDERED: MAG HYDROX/AL HYDROX/SIMETH 30 ML UNIT-DOSE CUP PO PRN (17:22)
[2021-01-16] MEDS: amLODIPine BESYLATE 10 MG TABLET (FP) PO SCH (18:48)
[2021-01-16] MEDS ORDERED: MELATONIN 5 MG TABLETS PO SCH (22:00)
[2021-01-16] MEDS ORDERED: THIAMINE HCL 100 MG TABLET (FP) PO SCH (22:00)
[2021-01-17 06:38] VITALS: BP 155/95; PULSE 86; TEMP 98.6
[2021-01-17] MEDS: amLODIPine BESYLATE 10 MG TABLET (FP) PO SCH (09:15)
[2021-01-17 09:40] VITALS: BMI 26.2
[2021-01-17] MEDS ORDERED: PRENATAL VITAMINS W/ FOLIC ACID TABLET (FP) PO SCH (10:00)
[2021-01-17] MEDS ORDERED: LISINOPRIL 10 MG TABLET PO SCH (10:00)
[2021-01-17] MEDS ORDERED: diazePAM 5 MG TABLET PO SCH (11:00)
[2021-01-17] MEDS ORDERED: diazePAM 5 MG TABLET PO PRN (11:50)
[2021-01-17] MEDS ORDERED: FLU VACC QS2021-22(6MOS UP)/PF 60 MCG/0.5 ML SYRINGE IM ONE (13:00)
[2021-01-19] MEDS ORDERED: diazePAM 5 MG TABLET PO SCH (06:00)
[2021-01-20] MEDS ORDERED: diazePAM 5 MG TABLET PO SCH (06:00)
[2021-01-21] MEDS ORDERED: diazePAM 5 MG TABLET PO ONE (06:00)
== END 2021-01-17 12:57 | DRG 774 ==
LOC: YASAS 13:49 → Y3N 17:45
PROVIDERS: ADMIT Allergy & Immunology; ATTEND Allergy & Immunology
PROC: HZ2ZZZZ Detoxification Services for Substance Abuse Treatment (ICD-10-PCS; principal; 2021-01-16)
DX: F10.230 Alcohol dependence with withdrawal, uncomplicated (principal); F14.20 Cocaine dependence, uncomplicated; F17.210 Nicotine dependence, cigarettes, uncomplicated; F31.9 Bipolar disorder, unspecified; F29 Unspecified psychosis not due to a substance or known physiological condition; F20.9 Schizophrenia, unspecified; I10 Essential (primary) hypertension; Z86.59 Personal history of other mental and behavioral disorders; Z88.8 Allergy status to other drugs, medicaments and biological substances
CPT/HCPCS: C9803; U0003; U0005